=== PATIENT | female | born 1955 | race Caucasian/White ===

== ENCOUNTER 2020-10-09 06:28 | Day surgery (SDC) | payer BC ==
[2020-10-09] MEDS ORDERED: Sodium Chloride 0.9% 1,000 ML IV SCH (07:00)
[2020-10-09] MEDS ORDERED: Propofol 200 MG/20 ML SDV ONE (07:02)
[2020-10-09] MEDS ORDERED: fentaNYL 100 MCG/2 ML SDV ONE (07:02)
[2020-10-09] MEDS ORDERED: Midazolam 1 MG/ML 2 ML SDV ONE (07:02)
[2020-10-09] MEDS ORDERED: Atropine 0.4 MG/ML SDV ONE (08:17)
[2020-10-09 09:40] VITALS: BP 122/83; PULSE 48
--- NOTE | 2020-10-09 11:35 | OR ---
DATE OF PROCEDURE: 10/09/2020 SURGEON: Richar Ragsdale MD PROCEDURE: Colonoscopy. FINDINGS: Normal colonoscopy. COMPLICATIONS: None. DATA PROCESSING CONSULTANT: None. ANESTHESIA: MAC. PREOPERATIVE DIAGNOSIS: Screening colonoscopy. POSTOPERATIVE DIAGNOSIS: Screening colonoscopy. RISKS: Risks, benefits, alternatives, and limitations including, but not limited to infection, bleeding, perforation, false positives, false negatives were explained to the patient and she wished to proceed. PROCEDURE IN DETAIL: The patient was placed in left lateral decubitus position. Digital rectal exam was performed without abnormality. Scope was introduced and advanced atraumatically to the ileocecal valve. A photo was taken. Scope was brought back to the ascending, transverse, descending colon, and retroflexed. No evidence of old or new blood. No masses. No polyps. No diverticulosis. No colitis. Greater than 8 minutes was spent removing the scope. No abnormalities on retroflexion. Approximately 90% of the luminal surface could be seen. The patient tolerated the procedure well. Richar Ragsdale MD /[id number]
== END 2020-10-09 09:59 | disposition home or self-care (01) ==
LOC: JP.SDS 06:28
PROVIDERS: ATTEND Surgery
DX: Z12.11 Encounter for screening for malignant neoplasm of colon (principal); E78.00 Pure hypercholesterolemia, unspecified; J45.909 Unspecified asthma, uncomplicated
CPT/HCPCS: 45378; J0461; J2250; J2704; J3010; J7030

== ENCOUNTER 2022-08-11 16:10 | Emergency (ER) | payer MEDICARE, OTHER ==
[2022-08-11 18:09] VITALS: BP 146/104; PULSE 68
[2022-08-11] MEDS ORDERED: Enoxaparin 120 MG/0.8 ML Syringe SUBCUT ONE (19:16)
[2022-08-11] MEDS ORDERED: Enoxaparin 100 MG/1 ML Syringe SUBCUT ONE (19:19)
== END 2022-08-11 19:50 | disposition home or self-care (01) ==
LOC: JP.ED 16:10
DX: I82.401 Acute embolism and thrombosis of unspecified deep veins of right lower extremity (principal); J45.909 Unspecified asthma, uncomplicated; Z86.16 Personal history of COVID-19; Z91.018 Allergy to other foods; Z87.891 Personal history of nicotine dependence
CPT/HCPCS: 93971; 96372; 99283; J1650